=== PATIENT | male | born 2000 | race Caucasian/White ===

== ENCOUNTER → 2019-04-28 | Outpatient (CLI) | payer BC ==
--- NOTE | 2019-04-28 16:35 | EKG ---
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 : 2000 Requested By: Tamia Cervantes Order Number: [id number] MD: Mario Rangel Measurements Intervals [place] Rate: 62 P: 35 OR: 156 QRS: -1 QRSD: 103 T: 9 QT: 372 QTc: 378 Interpretive Statements Sinus rhythm Normal tracing No previous ECG available for comparison Electronically Signed On 04-28-2019 16:35:22 CDT by Mario Rangel [email or web address] ��������������������������������������������� <ELECTRONICALLY SIGNED> ���������������������������������������� By: Mario Rangel MD, [facility] ��������������������������������������������� 04/28/19 1635 1624 1624 Mario Rangel MD, FACC /EPI
== END ==
LOC: CV 15:51
DX: R00.2 Palpitations (principal)